=== PATIENT | male | born 1935 | race Caucasian/White ===

== ENCOUNTER → 2018-08-28 | Outpatient (REF) | payer MEDICARE, BC | END | disposition home or self-care (01) | LOC: LABSPEC 11:40 | PROVIDERS: ATTEND Internal Medicine | DX: I10 Essential (primary) hypertension (principal) ==

== ENCOUNTER 2020-06-17 13:37 | Emergency (ER) | payer MEDICARE, BC ==
[~2020-06-17] VITALS: Ht 180.3 cm; Wt 89.0 kg
[2020-06-17 14:31] LABS: GFR > 60 ML/MIN (>=60 (CALC)); GFR FOR AFR.AMER. > 60 ML/MIN (>=60 (CALC))
[2020-06-17 14:32] LABS: HEMATOCRIT 38.5 % (39.0-50.0); HEMOGLOBIN 12.7 g/dl (14.0-18.0); IMMATURE GRANULOCYTES 0.3 % (0.0-5.0); MEAN CORPUSCULAR HGB 30.7 pG CALC (26.0-32.0); NEUT# 5.55 thou/uL (1.82-7.42); RED BLOOD COUNT 4.14 mill/uL (4.70-6.10); RED CELL DISTRI WIDTH 14.1 % (11.5-15.5)
[2020-06-17 14:54] LABS: ALBUMIN 3.7 g/dL (3.2-5.0); ALKALINE PHOSPHATASE 42 u/l (38-126); BILIRUBIN, TOTAL 0.4 mg/dL (0.0-1.4); BUN 28 mg/dL (8-23); BUN/CREATININE RATIO 33 (12-20 (CALC)); CARBON DIOXIDE 21 mmol/l (22-30); CHLORIDE 99 mmol/l (95-108); CREATININE 0.8 mg/dL (0.7-1.3); GFR > 60 ML/MIN (>=60 (CALC)); GFR FOR AFR.AMER. > 60 ML/MIN (>=60 (CALC)); TOTAL PROTEIN 6.7 g/dL (6.3-8.2)
[2020-06-17 14:56] LABS: SODIUM 126 mmol/l (137-146)
[2020-06-17 14:57] LABS: ANION GAP 11 (6-22 (CALC)); POTASSIUM 5.2 mmol/l (3.5-5.1); SGOT/AST 46 u/l (19-48)
[2020-06-17 17:02] VITALS: BP 142/81
[2020-06-17] MEDS ORDERED: BYSTOLIC10 MG PO (19:26)
[2020-06-17] MEDS ORDERED: LISINOPRIL40 MG PO (19:26)
[2020-06-17] MEDS ORDERED: FINASTERIDE5 MG PO (19:28)
[2020-06-17] MEDS ORDERED: FLONASE AL50 MCG/ACT NAB (19:28)
[2020-06-17] MEDS ORDERED: SERTRALINE25 MG PO (19:28)
[2020-06-17] MEDS ORDERED: CHLORTHALID50 MG PO (19:29)
[2020-06-17] MEDS ORDERED: FERR SULFATE325 MG PO (19:29)
[2020-06-17] MEDS ORDERED: SPIRONOLACT25 MG PO (19:30)
[2020-06-17] MEDS ORDERED: TOPAMAX50 M1 PO (19:30)
[2020-06-17] MEDS ORDERED: LEVOCETIRIZINE D5 MG PO (19:30)
[2020-06-17] MEDS ORDERED: NORVASC10 M1 PO (19:31)
[2020-06-17] MEDS ORDERED: TAMSULOSIN0.4 MG PO (19:31)
[2020-06-17] MEDS ORDERED: TIMOLOL 0.5%5 ML OU (19:32)
[2020-06-17] MEDS ORDERED: VITAMIN C500 M6 PO (19:33)
[2020-06-17] MEDS ORDERED: ASPIRIN81 MG PO (19:33)
[2020-06-17] MEDS ORDERED: TRAVATAN0.0041 OU (19:34)
== END 2020-06-17 17:04 | disposition left against medical advice (07) ==
LOC: ED 13:37
PROVIDERS: Family Medicine
DX: G45.9 Transient cerebral ischemic attack, unspecified (principal); I65.23 Occlusion and stenosis of bilateral carotid arteries; I10 Essential (primary) hypertension; Z91.19 Patient's noncompliance with other medical treatment and regimen; Z20.828 Contact with and (suspected) exposure to other viral communicable diseases

== ENCOUNTER 2021-02-20 15:30 | Emergency (ER) | payer MEDICARE, BC ==
[~2021-02-20] VITALS: Ht 182.9 cm; Wt 90.0 kg
[~2021-02-20 15:30] MED LIST: ASPIRIN81 MG PO; BYSTOLIC10 MG PO; CHLORTHALID50 MG PO; FERR SULFATE325 MG PO; FINASTERIDE5 MG PO; FLONASE AL50 MCG/ACT NAB; LEVOCETIRIZINE D5 MG PO; LISINOPRIL40 MG PO; NORVASC10 M1 PO; SERTRALINE25 MG PO; SPIRONOLACT25 MG PO; TAMSULOSIN0.4 MG PO; TIMOLOL 0.5%5 ML OU; TOPAMAX50 M1 PO; TRAVATAN0.0041 OU; VITAMIN C500 M6 PO
[2021-02-20 16:20] VITALS: BP 139/84
== END 2021-02-20 16:20 | disposition home or self-care (01) ==
LOC: ED 15:30
DX: Z03.89 Encounter for observation for other suspected diseases and conditions ruled out (principal); I10 Essential (primary) hypertension; I65.29 Occlusion and stenosis of unspecified carotid artery

== ENCOUNTER 2022-04-05 09:41 | Inpatient (IN) | payer MEDICARE, BC ==
[~2022-04-05] VITALS: Ht 182.9 cm; Wt 113.0 kg
[~2022-04-05 09:41] MED LIST changes: -TRAVATAN0.0041 OU; +TRAVOPROST0.0041 OU
--- NOTE | 2022-04-05 10:10 | NUR ---
PT BROUGHT IN VIA EMS, STABLE
[2022-04-05 10:42] LABS: ALBUMIN 3.5 g/dL (3.2-5.0); ALKALINE PHOSPHATASE 50 u/l (38-126); ANION GAP 15 (6-22 (CALC)); BILIRUBIN, TOTAL 0.4 mg/dL (0.0-1.4); BUN 16 mg/dL (8-23); BUN/CREATININE RATIO 13 (12-20 (CALC)); CARBON DIOXIDE 21 mmol/l (22-30); CHLORIDE 108 mmol/l (95-108); CREATININE 1.2 mg/dL (0.7-1.3); GFR FOR AFR.AMER. > 60 ML/MIN (>=60 (CALC)); GFR OTHER RACES 58 ML/MIN (>=60 (CALC)); POTASSIUM 4.1 mmol/l (3.5-5.1); SGOT/AST 28 u/l (19-48); SODIUM 139 mmol/l (137-146)
[2022-04-05 10:45] LABS: HEMATOCRIT 33.7 % (39.0-50.0); HEMOGLOBIN 10.4 g/dl (14.0-18.0); IMMATURE GRANULOCYTES 0.1 % (0.0-5.0); MEAN CELL VOLUME 102.1 fL CALC (80.0-100.0); MEAN CORPUSCULAR HGB 31.5 pG CALC (26.0-32.0); MEAN CORPUSCULAR HGB CONC 30.9 g/dL CAL (32.0-36.0); NEUT# 4.23 thou/uL (1.82-7.42); RED BLOOD COUNT 3.3 mill/uL (4.70-6.10); RED CELL DISTRI WIDTH 14.2 % (11.5-15.5)
--- NOTE | 2022-04-05 11:10 | NUR ---
Reassessment of patient completed. No distress noted.
--- NOTE | 2022-04-05 12:10 | NUR ---
Reassessment of patient completed. Assisted with urinal. No distress noted.
[2022-04-05 12:24] LABS: URINE BILIRUBIN - DIPSTICK NEGATIVE (NEGATIVE); URINE BLOOD DIPSTICK NEGATIVE (NEGATIVE); URINE COLOR YELLOW; URINE GLUCOSE - DIPSTICK NEGATIVE (NEGATIVE); URINE KETONE NEGATIVE (NEGATIVE); URINE LEUK ESTERASE NEGATIVE (NEGATIVE); URINE PROTEIN - DIPSTICK NEGATIVE (NEG-TRACE); URINE SPECIFIC GRAVITY 1.015; URINE UROBILINOGEN - DIPSTICK 0.2 E.U./dL (0.2)
[2022-04-05 12:26] LABS: URINE NITRITE - DIPSTICK NEGATIVE (Negative)
--- NOTE | 2022-04-05 13:10 | NUR ---
Reassessment of patient completed. Spouse at bedside. No distress noted.
--- NOTE | 2022-04-05 14:10 | NUR ---
Reassessment of patient completed.Assitance given with urinal. No other needs voiced. Spouse at bedside
[2022-04-05] MEDS ORDERED: REMERON15 MG PO (15:23)
[2022-04-05] MEDS ORDERED: WELLBUTRIN XL300 MG PO (15:23)
[2022-04-05] MEDS ORDERED: GUANFACINE ER2 MG PO (15:24)
[2022-04-05] MEDS ORDERED: WELLBUTRIN XL150 MG PO (15:24)
[2022-04-05] MEDS ORDERED: SENNA-TABS8.6 MG PO (15:24)
[2022-04-05] MEDS ORDERED: [UNRECOGNIZED DRUG - OTHER] PO (15:25)
--- NOTE | 2022-04-05 16:32 | NUR ---
SETTLED PATIENT IN BED, WAS AT BEDSIDE SHE IS LEAVING BUT IS COMING BACK TO BE WITH HIM, HANDING OFF REPORT TO MEDICAL SERVICES COORDINATOR NURSE, CARMELITA.
--- NOTE | 2022-04-05 16:40 | NUR ---
RECIEVED REPORT ON PT. PT IN ROOM WITH , SLEEPING. EASILY AROUSIBLE AND PLEASANT. ALERT AND ORIENTATED X1. SPEECH CLEAR, BREATHING EVEN AND NONLABORED WHILE ON ROOM AIR. EMS SITE INTACT SPEEARS HEALTHY, FLUSHED. PT DENIES PAIN. TELE IN PLACE. SIDE RAILS X2. CALL LIGHT IN REACH, ALL SAFETY PRECAUTIONS IN PLACE AT THIS TIME.
[2022-04-05 16:44] VITALS: BP 184/81
[2022-04-05 19:22] VITALS: BP 182/79
--- NOTE | 2022-04-05 21:00 | NUR ---
PT IN ROOM AWAKE, CONFUSED ALERT X1. PT SEEING SNAKES, BIRDS AND PEOPLE IN ROOM. PT REORIENTATED. PT REPOSITIONED IN BED. OFFERED URINAL AND A SNACK. PT DENIES ANY NEEDS. BREATHING REMAINS THE SAME. CALL LIGHT IN REACH, ALL SAFETY PRECAUTIONS IN PLACE AT THIS TIME.
--- NOTE | 2022-04-05 22:00 | NUR ---
PT YELLING FOR . CALLING FOR HELP. TRYING TO GET OUT OF BED.PT REORIENTATED. REASSURED IS OKAY AND WILL RETURN TOMORROW AFTER HER PROCEDURE. PT SEEMED CONTENT WITH ANSWER GIVEN. OFFERED URINAL PT TRIED TO USE IT BUT WAS UNABLE TO PEE. ALL SAFETY PRECAUTIONS IN PLACE AT THIS TIME.
--- NOTE | 2022-04-05 23:45 | NUR ---
PT YELLING AGAIN, SAYING "HELP ME!". AYA NURSE WENT TO ROOM TO ASSIST PT. PT STATED NEEDING TO LEAVE BECAUSE OF NEEDING TO GO TO EMERGENCY ROOM. ATTEMPTED TO REORIENTATE. PT REFUSES TO ALLOW STAFF TO OBTAIN VITALS. HITTING SIDE RAILS WITH URINAL. PT REMOVED TELLE CORDS.
--- NOTE | 2022-04-06 01:06 | NUR ---
CALLED COLLIERY CLERK PHYSICAN DUE TO PT AGITATION. PT REMAINS CONFUSED AND AGITATED WELL SHOWING ANXIETY. WORRIED ABOUT WIFES PROCEDURE, THE PERSON HE SEES IN THE SHADOWS, SNAKES IN ROOM WELL STATES NEEDS TO LEAVE. PT UNABLE TO BE REORIENTATED.
--- NOTE | 2022-04-06 02:05 | NUR ---
ORDER FOR ZYPREXA RECIEVED, MEDICATION ADMINISTERED PER ORDERS.
--- NOTE | 2022-04-06 05:28 | NUR ---
PT RESTLESS IN BED. LESS YELLING, NO LONGER HITTING THE BED WITH URINAL BUT COMPLETELY AWAKE AND CONSTANTLY REPOSITIONING SELF SIDEWAYS IN CENTER OF BED. UNABLE TO REORIENTATE PT. ALL SAFETY PRECAUTIONS IN PLACE. BED ALARM IN PLACE
[2022-04-06 06:54] VITALS: BP 193/84
--- NOTE | 2022-04-06 07:00 | NUR ---
RECEIVE REPORT FROM DALJIT SHANNON.
--- NOTE | 2022-04-06 08:00 | NUR ---
Patient is alert and oriented x3 but have periods of frequent forgetfulness.
--- NOTE | 2022-04-06 08:00 | NUR ---
PATIENT ALERT AND ORIENTED X3. GOOD RESPIRATORY RATE AT THIS TIME. VERIFY BP LEVEL. PT IS EDUCATED ABOUD MEDICATIONS AND NURSING PLAN FOR TODAY. PT REFER UNDERSTAND. SAFETY AND FALL PRECAUTIONS IN PLACE. CALL LIGHT WITHIN REACH.
[2022-04-06] MEDS ORDERED: DORZOLAMIDE HCL2 % OU (10:01)
[2022-04-06 10:03] VITALS: BP 171/93
[2022-04-06 10:05] VITALS: BP 171/93
[2022-04-06 10:47] LABS: IMMATURE GRANULOCYTES 0.2 % (0.0-5.0); MEAN CELL VOLUME 100.2 fL CALC (80.0-100.0); MEAN CORPUSCULAR HGB 30.8 pG CALC (26.0-32.0); MEAN CORPUSCULAR HGB CONC 30.8 g/dL CAL (32.0-36.0); NEUT# 5.32 thou/uL (1.82-7.42); RED BLOOD COUNT 4.02 mill/uL (4.70-6.10); RED CELL DISTRI WIDTH 13.8 % (11.5-15.5)
[2022-04-06 11:00] VITALS: BP 180/108
[2022-04-06 11:01] LABS: ALBUMIN 3.7 g/dL (3.2-5.0); ALKALINE PHOSPHATASE 63 u/l (38-126); ANION GAP 20 (6-22 (CALC)); BILIRUBIN, TOTAL 0.4 mg/dL (0.0-1.4); BUN 18 mg/dL (8-23); BUN/CREATININE RATIO 15 (12-20 (CALC)); C-REACTIVE PROTEIN 1.7 mg/dL (0-0.9); CARBON DIOXIDE 19 mmol/l (22-30); CHLORIDE 106 mmol/l (95-108); CREATININE 1.2 mg/dL (0.7-1.3); GFR FOR AFR.AMER. > 60 ML/MIN (>=60 (CALC)); GFR OTHER RACES 58 ML/MIN (>=60 (CALC)); POTASSIUM 4.2 mmol/l (3.5-5.1); SGOT/AST 38 u/l (19-48); SODIUM 140 mmol/l (137-146); TOTAL PROTEIN 6.2 g/dL (6.3-8.2)
[2022-04-06 11:05] LABS: HEMATOCRIT 40.3 % (39.0-50.0); HEMOGLOBIN 12.4 g/dl (14.0-18.0)
--- NOTE | 2022-04-06 11:54 | NUR ---
PATIENT RESTING PLEASANT AT BED. ACCOMPANIED FOR AND DAUGHTER.
--- NOTE | 2022-04-06 12:00 | NUR ---
PATIENT RESTING PLEASANT AT BED. ACCOMPANIED FOR AND DAUGHTER.
--- NOTE | 2022-04-06 16:00 | NUR ---
HE PATIENT'S IS GIVEN A YELLOW RING, A YELLOW WATCH AND A BROWN BRACELET. BEFORE MRI.
--- NOTE | 2022-04-06 16:00 | NUR ---
PATIENT WITH INTERMITTENT PERIODS OF CLARITY AND CONFUSION. IT IS INFORMED TO DR. BURKS. WHO ORDERS SITTER AND MRI. FAMILY AT BEDSIDE. MEDICATION IS ADMINISTERED FOR JULIETA BLOOD PRESSURE. IT IS INFORMED TO DR. BURKS.
[2022-04-06 16:07] LABS: ALBUMIN 3.7 g/dL (3.2-5.0); BILIRUBIN, TOTAL 0.4 mg/dL (0.0-1.4); TOTAL PROTEIN 6.3 g/dL (6.3-8.2)
--- NOTE | 2022-04-06 19:00 | NUR ---
RECIEVED REPORT ON PT. PT IN SLEEPING, BREATHING REMAINS EVEN AND NONLABORED. NO SIGNS OF DISTRESS. TELE IN PLACE. IV SITE PATENT. SITTER PRESENT AT BED SIDE. ALL SAFETY PRECAUTIONS IN PLACE.
[2022-04-06 19:57] VITALS: BP 158/76
[2022-04-06 20:45] VITALS: BP 132/64
[2022-04-07] VITALS (9 sets, daily range): BP systolic 139–194; BP diastolic 58–95
--- NOTE | 2022-04-07 | NUR ---
PT SLEEPING IN BED, EASIY ARROUSIBLE. ALERT TO SELF, CONFUSED ON TIME FRAME, AWARE IN HOSPITAL. IV FLUIDS STOPPED BECAUSE IT BEGAN TO AGGITATE PT. OFFERED URINAL ADN SNACK. PT GIVEN A MOUTH SWAB TO HELP MOISTEN MOUTH. DENIES ANY FURTHER NEEDS AT THIS TIME. CALL LIGHT IN REACH, SITTER AT BEDSIDE ADN ALL SAFETY PRECAUTIONS IN PLACE AT THIS TIME.
--- NOTE | 2022-04-07 02:55 | NUR ---
PT AGITATED, TRYING TO GET OUT OF BED. CHANNEL SUPERVISOR AND NURSE UNABLE TO REORIENTATE PT. OFFERED PT URINAL, PT BEGAN TO BE COMBATIVE WITH CHANNEL SUPERVISOR. PT OFFERED DRINK AND SNACK PT REFUSED. PT GIVEN A WARM BLANKET TO TRY TO COMFORT PT. SITTER AT BEDSIDE, ALL SAFETY PRECAUTIONS IN PLACE AT THIS TIME
--- NOTE | 2022-04-07 04:37 | NUR ---
STROKE ALERT CALLED DUE TO LEFT EYE PUPIL BEING LARGER THAN RIGHT. 4CM PUPIL ON LEFT EYE 2CM RIGHT EYE POUPIL. SPEACH SLURRED AND PT UNABLE TO SAY OWN NAME. PT SHIVERING, TEMP 99.0. TAKING PT TO CT WITH DAMPER WORKER
--- NOTE | 2022-04-07 04:40 | NUR ---
TELENEUROLOGY CONSULT WITH MARGARITA VAZQUEZ DO. REFERRENCE TELENEUROLOGY NOTE.
[2022-04-07 05:07] LABS: HEMATOCRIT 39.8 % (39.0-50.0); HEMOGLOBIN 12.6 g/dl (14.0-18.0); IMMATURE GRANULOCYTES 0.1 % (0.0-5.0); MEAN CORPUSCULAR HGB 31.3 pG CALC (26.0-32.0); MEAN CORPUSCULAR HGB CONC 31.7 g/dL CAL (32.0-36.0); NEUT# 5.61 thou/uL (1.82-7.42); RED BLOOD COUNT 4.02 mill/uL (4.70-6.10); RED CELL DISTRI WIDTH 13.8 % (11.5-15.5)
--- NOTE | 2022-04-07 05:30 | NUR ---
DR. KIRKPATRICK INFORMED OF PT CHNAGE OF CONIDTION. VERBALIZED APPROVAL OF CTA THAT WAS RECOMMENDED BY MARGARITA RIVERA DO.
[2022-04-07 05:38] LABS: CREATININE 1.4 mg/dL (0.7-1.3); MAGNESIUM 2.4 mg/dL (1.6-2.3); POTASSIUM 4.1 mmol/l (3.5-5.1)
--- NOTE | 2022-04-07 05:41 | NUR ---
BROUGHT PT BACK TO MED SURG AFTER CTA,AWAITING RESESULTS. CT SHOWED ISCHEMIC DISEASE. PT BRIEF CHANGED, BED LINEN CHANGED. SITTER PRESENT WITH PATIENT. ALL SAFETY PRECAUTIONS IN PLACE AT THIS TIME.
--- NOTE | 2022-04-07 07:00 | NUR ---
RECEIVE REPORT FROM DALJIT SHANNON.
--- NOTE | 2022-04-07 08:00 | NUR ---
PATIENT RESTING IN BED STABLE AT THIS TIME. PATIENT ALEET AND ORIENTED X1. SITTER AT BEDSIDE. GOOD RESPIRATORY RATE O2 100% RA. PATIENT IS EDUCATED ABOUD MEDICATIONS AND NURSING PLAN FOR TODAY. PT REFER UNDERSTASND.
--- NOTE | 2022-04-07 08:04 | NUR ---
PRELIMINARY BLOOD CX SHOWS GRAM POSITIVE COCCI IN 2/[address] BURKS. RECOMMENDED STARTING VANCOMYCIN. DR BURKS AGREED. ORDER ENTERED. WILL F/U WITH FINAL RESULTS
--- NOTE | 2022-04-07 09:32 | NUR ---
S: PIPPA JURADO is a 86 M who presents with altered mental status. He has a history of HTN, carotid stenosis, and CAD. Pt also presents with leukocytosis. All medications in patient's chart were reviewed. O: VS: BP 192/91 mmHg, P 80 bpm, RR 19 bpm, T 98.8 F W 113.001 kg, HT 182.88 cm, Scr= 1.4 mg/dL, CrCl= 51 mL/min A: Blood culture preliminary shows gram positive cocci, final result still pending. P: Vancomycin ordered for pharmacy to dose. Patient is not on other antibiotics. Start Vancomycin 750mg IV Q12H. Vancomycin trough is drawn before the 4th dose on 04/08/22 @ 2030. Vancomycin goal trough is between 15-20 mcg/mL. Pharmacy will follow and or advise on antibiotics use as needed.
[2022-04-07 09:58] LABS: TSH, 3RD GENERATION 2.12 uIU/mL (0.47 - 4.68)
--- NOTE | 2022-04-07 11:00 | NUR ---
LOREN IN PLACE FOR MATEUS REYES
[2022-04-07 11:32] LABS: URINE BILIRUBIN - DIPSTICK NEGATIVE (NEGATIVE); URINE BLOOD DIPSTICK NEGATIVE (NEGATIVE); URINE CLARITY CLEAR; URINE COLOR YELLOW; URINE GLUCOSE - DIPSTICK NEGATIVE (NEGATIVE); URINE KETONE TRACE mg/dL (NEGATIVE); URINE LEUK ESTERASE NEGATIVE (Negative); URINE NITRITE - DIPSTICK NEGATIVE (Negative); URINE PROTEIN - DIPSTICK NEGATIVE (NEG-TRACE); URINE SPECIFIC GRAVITY 1.015; URINE UROBILINOGEN - DIPSTICK 0.2 E.U./dL (0.2)
--- NOTE | 2022-04-07 11:58 | NUR ---
PATIENT RESTING IN THE CHAIR. SITTER AT BEDSIDE. PIMENTEL DONE FOR URINE RETENTION. STABLE AT THIS TIME.
--- NOTE | 2022-04-07 16:27 | NUR ---
PATIENT RESTING IN BED. SITTER AT BEDSIDE. PT TRIED TO REMOVE THE PIMENTEL URINE OBSERVED BLOODY FOR THIS REASON.
[2022-04-08 05:23] LABS: HEMATOCRIT 37.9 % (39.0-50.0); IMMATURE GRANULOCYTES 0.2 % (0.0-5.0); MEAN CELL VOLUME 99.2 fL CALC (80.0-100.0); MEAN CORPUSCULAR HGB 31.4 pG CALC (26.0-32.0); MEAN CORPUSCULAR HGB CONC 31.7 g/dL CAL (32.0-36.0); NEUT# 6.05 thou/uL (1.82-7.42); RED BLOOD COUNT 3.82 mill/uL (4.70-6.10)
[2022-04-08 05:50] LABS: ANION GAP 16 (6-22 (CALC)); BUN 21 mg/dL (8-23); BUN/CREATININE RATIO 18 (12-20 (CALC)); CARBON DIOXIDE 20 mmol/l (22-30); CHLORIDE 106 mmol/l (95-108); CREATININE 1.2 mg/dL (0.7-1.3); GFR FOR AFR.AMER. > 60 ML/MIN (>=60 (CALC)); GFR OTHER RACES 58 ML/MIN (>=60 (CALC)); MAGNESIUM 2.2 mg/dL (1.6-2.3); SODIUM 138 mmol/l (137-146)
[2022-04-08 06:02] VITALS: BP 105/84
--- NOTE | 2022-04-08 08:00 | NUR ---
Patient is laying in bed with sitter at bedside. Patient midly anxious and needs frequent reorientation. Vitals WNL, patient has no complaints of pain at this time and is in no visible distress. This nurse made aware patient is to get Lumbar Puncture this afternoon. Assessments WNL.
[2022-04-08 08:31] VITALS: BP 169/77
--- NOTE | 2022-04-08 12:00 | NUR ---
This nurse accompanied patient to Trauma Room # 1 by the ER for Lumbar Puncture. Patient was given Valium 5 mg IV per verbal order. Patient tolerated procedure with reorienatation and emotional support.
[2022-04-08 15:13] VITALS: BP 129/61
--- NOTE | 2022-04-08 19:20 | NUR ---
REPORT RECEIVED FROM Davina STEPHENSON RN.
--- NOTE | 2022-04-08 21:00 | NUR ---
PATIENT RESTING QUIETLY. SITTER AT BEDSIDE. FOLWY DRAINING DARK TIMUR URINE TO GRAVITY. BED ALARM INITIATED OFR SAFETY, CALL LIGHT AND BEDSIDE TABLE WTIHIN REACH.
--- NOTE | 2022-04-08 23:30 | NUR ---
MEDICATIONS NOT GIVEN, PATIENT ABLE TO AWAKE TO SPEECH BUT NOT ORIENTED TO TIME AND PLACE AND REFUSING TO FOLLOW COMMANDS. NOTIFIED DRY CELL TESTER.
--- NOTE | 2022-04-09 04:00 | NUR ---
PATIENT RESTING COMOFRTABLY, SITTER AT BEDSIDE. BED ALARM REMAINS ON FOR SAFETY. CALL LIGHT AND BEDSDIE TABLE WITHIN REACH.
[2022-04-09 05:44] LABS: HEMATOCRIT 36.1 % (39.0-50.0); HEMOGLOBIN 11.6 g/dl (14.0-18.0); IMMATURE GRANULOCYTES 0.1 % (0.0-5.0); MEAN CELL VOLUME 99.4 fL CALC (80.0-100.0); MEAN CORPUSCULAR HGB CONC 32.1 g/dL CAL (32.0-36.0); NEUT# 5.34 thou/uL (1.82-7.42); RED BLOOD COUNT 3.63 mill/uL (4.70-6.10); RED CELL DISTRI WIDTH 13.9 % (11.5-15.5)
[2022-04-09 06:05] LABS: ALBUMIN 3.1 g/dL (3.2-5.0); ALKALINE PHOSPHATASE 45 u/l (38-126); ANION GAP 15 (6-22 (CALC)); BILIRUBIN, TOTAL 0.5 mg/dL (0.0-1.4); BUN 19 mg/dL (8-23); BUN/CREATININE RATIO 18 (12-20 (CALC)); CARBON DIOXIDE 19 mmol/l (22-30); CHLORIDE 110 mmol/l (95-108); CREATININE 1.1 mg/dL (0.7-1.3); GFR FOR AFR.AMER. > 60 ML/MIN (>=60 (CALC)); GFR OTHER RACES > 60 ML/MIN (>=60 (CALC)); POTASSIUM 4.5 mmol/l (3.5-5.1); SGOT/AST 39 u/l (19-48); SODIUM 139 mmol/l (137-146); TOTAL PROTEIN 5.6 g/dL (6.3-8.2)
--- NOTE | 2022-04-09 08:00 | NUR ---
PT RESTING IN BED WITH SITTER IN ROOM. PT VERY CONFUSED.
--- NOTE | 2022-04-09 08:22 | NUR ---
S: PIPPA JURADO is a 86 M who presents with bacteremia. He has a history of HTN, carotid stenosis, and CAD. All medications in patient's chart were reviewed. O: VS: BP 129/61 mmHg, P 70 bpm, RR 20 bpm, T 100.3 F W 113.001 kg, HT 182.88 cm, Scr= 1.1 mg/dL, CrCl= 64.9 mL/min Trough level on 04/08/22 @2042 = 12 ug/mL A: Blood culture shows Staphylococcus Pettenkoferi growth susceptible to vancomycin in 2/4 vials, possible contaminant. Repeat culture is pending. Urine culture shows no growth. CSF culture is pending. P: Patient is not on other antibiotics. Vancomycin ordered for pharmacy to dose. Continue Vancomycin 750mg IV Q12H. Vancomycin trough is drawn before the 4th dose on 04/10/22 @0830. Vancomycin goal trough is between 15-20 mcg/mL. Pharmacy will follow and or advise on antibiotics use as needed.
[2022-04-09 09:41] VITALS: BP 195/98
--- NOTE | 2022-04-09 10:09 | NUR ---
PT TAKEN TO MRI
--- NOTE | 2022-04-09 10:51 | NUR ---
PT BACK FROM MRI.
--- NOTE | 2022-04-09 12:23 | NUR ---
PT SLEEPING IN BED. AND SITTER IN ROOM.
[2022-04-09 14:48] VITALS: BP 160/77
[2022-04-09 15:44] VITALS: BP 125/61
--- NOTE | 2022-04-09 16:01 | NUR ---
PT RESTING IN BED COMFORTABLY. VSS. SITTER AND IN ROOM.
[2022-04-09 19:00] VITALS: BP 143/86
[2022-04-09 19:12] VITALS: BP 143/86
--- NOTE | 2022-04-09 20:15 | NUR ---
PT SLEEPY, EASILY AROUSABLE.HR-RRR, NO PAIN, CHEST PAIN NOTED. LS CLEAR, DIMINISHED IN BASES, NO SOB, DIFFICULTY BREATHING NOTED. ABD SOFT, NONTENDER, BT PRESENT, NO NAUSEA NOTED. PT ABLE TO MOVE ALL EXTREMETIES, PT ABLE T[place]KE NEEDS KNOWN. SKIN INTACT. HEELS FLOATED.
[2022-04-09 23:58] VITALS: BP 155/60
[2022-04-10] VITALS (54 sets, daily range): BP systolic 93–207; BP diastolic 60–117
--- NOTE | 2022-04-10 01:10 | NUR ---
SPOKE WITH DENY AT THE [facility]. SHE STATED THAT THE HOSPITAL IS CURRENTLY AT CAPACITY AND COULD NOT ACCEPT A NON-EMERGENT TRANSFER TONIGHT. THE PHYSICIAN GROUP REQUESTED THAT THE PRIMARY CARE PROVIDER CALL IN THE MORNING TO CONDUCT A [id number] REPORT IN THE MORNING AND REASSESS THE FACILITY'S STATUS AT THAT TIME.
--- NOTE | 2022-04-10 02:07 | NUR ---
PT AGITATED, FOOD AND WATER OFFERED, PT REFUSED. PT ORIENTED TO HOSPITALSETTING
--- NOTE | 2022-04-10 05:32 | NUR ---
PT BP 185/76, PRN LABETOLOL GIVEN. PT TEMP 101. URINE OUTPUT 300 ML TIMUR URINE IN [address] BURKS NOTIFIED. WILL CONTINUE TO MONITOR
--- NOTE | 2022-04-10 06:06 | NUR ---
PTO2 SATS 85-89 ON 2L NC, PT INSTRUCTED TO TAKE DEEP BREAHTS, UNABLE TO FOLLOW COMMANDS, BREATHING THROUGH MOUTH. OXYMASK NOT AVAILABLE ON FLOOR, INCREASED O2 TO 5L. PT O2 SATS 90. DR GONZALEZ NOTIFIED.
--- NOTE | 2022-04-10 06:25 | NUR ---
REPORT GIVEN TO CREW PERSON. PT TRANSFERRED WITH ALL BELONGINGS. PT RESTING IN NO SIGN OF DISCOMFORT.
--- NOTE | 2022-04-10 06:34 | NUR ---
PT. TRANSFERRED FROM ROOM 270. REPORT RECEIVED FROM RODRIGUEZ FALK. PT. CONFUSED. B/P IS 189/84. AWAITING ORDERS TO BE VERIFIED. PT ON 5 L NC. PT. NOT IN ANY DISTRESS. SITTER AT BEDSIDE. WILL CONTINUE TO MONITOR
--- NOTE | 2022-04-10 07:46 | NUR ---
pt resting in bed with eyes closed; no apparent distress noted; easily aroused; pt offers no complaints; assessment completed at this time; pt alert to person, place and year; answers questions approp however speech is very garbled; denies pain; no n/v noted; resp even and unlabored; lungs clear/ diminished bases; skin color wnl; o2 per nc at 6L; pt noted to mouth breath; hr reg; wk pedal pulses; no edema noted; sr on monitor; abd soft with bs present; no bm noted per securities underwriter; aragon to gravity; #20 patent to rfa with ivf infusing without complication; no redness or edema noted at site; pt able to follow all commands, right leg drift noted; visual impairment noted as well; sitter present at bedside for pt safety; repositioned; call light within reach; will continue to monitor
--- NOTE | 2022-04-10 08:08 | NUR ---
pt resting in bed with eyes closed; no apparent distress noted; sr on monitor; sitter present at bedside; call light within reach; will continue to monitor
[2022-04-10 08:11] LABS: HEMATOCRIT 36.7 % (39.0-50.0); HEMOGLOBIN 11.4 g/dl (14.0-18.0); IMMATURE GRANULOCYTES 0.2 % (0.0-5.0); MEAN CELL VOLUME 100.8 fL CALC (80.0-100.0); MEAN CORPUSCULAR HGB 31.3 pG CALC (26.0-32.0); MEAN CORPUSCULAR HGB CONC 31.1 g/dL CAL (32.0-36.0); NEUT# 6.17 thou/uL (1.82-7.42); RED BLOOD COUNT 3.64 mill/uL (4.70-6.10)
[2022-04-10 08:15] LABS: ANION GAP 14 (6-22 (CALC)); BUN 21 mg/dL (8-23); BUN/CREATININE RATIO 17 (12-20 (CALC)); CARBON DIOXIDE 18 mmol/l (22-30); CHLORIDE 111 mmol/l (95-108); CREATININE 1.2 mg/dL (0.7-1.3); GFR FOR AFR.AMER. > 60 ML/MIN (>=60 (CALC)); GFR OTHER RACES 58 ML/MIN (>=60 (CALC)); MAGNESIUM 2.4 mg/dL (1.6-2.3); POTASSIUM 4.2 mmol/l (3.5-5.1); SODIUM 140 mmol/l (137-146)
--- NOTE | 2022-04-10 08:31 | NUR ---
Dr Ortega present at bedside to assess pt and discuss plan of care
--- NOTE | 2022-04-10 08:54 | NUR ---
Dr Ortega present at bedside to speak with spouse
--- NOTE | 2022-04-10 09:30 | NUR ---
pt transported to CT scan via bed accompanied per this typewriter ribbon winder and Biju Carlisle CNA; tolerated well; o2 per nc during transport;
--- NOTE | 2022-04-10 09:43 | NUR ---
pt returned to room via bed in stable condition; monitoring attachments connected; will continue to monitor
--- NOTE | 2022-04-10 10:15 | NUR ---
resting in bed with eyes closed; family x2 at bedside; offers no complaints; iv intact and patent; aragon to gravity; will continue to monitor
--- NOTE | 2022-04-10 11:19 | NUR ---
repositioned to left side
--- NOTE | 2022-04-10 12:00 | NUR ---
awake in bed; repositioned; pt appears more anxious; easily reoriented; cooperative at this time; spouse and daughter at bedside; updated awaiting CT report and bed availability at [facility]; will continue to monitor
--- NOTE | 2022-04-10 12:10 | NUR ---
Dr Graham present bedside to re-assess pt and speak with family
--- NOTE | 2022-04-10 14:22 | NUR ---
pt awake; appears slightly agitated; continued stimulation by family; pt respositioned to right side; feet offloaded with pillow; blankets straightened for comfort; family to depart and allow pt to rest for a while; this mortgage underwriter assured spouse she will be notified with any changes, transfer update; apprec of care; will continue to monitor
--- NOTE | 2022-04-10 16:11 | NUR ---
resting in bed with eyes closed; no apparent distress noted; iv intact and patent; sr on monitor; aragon to gravity; will continue to monitor
--- NOTE | 2022-04-10 16:25 | NUR ---
repositioned to left side; feet floated; pt more agitated; attempts to push staff away when trying to adjust o2; pt refusing oral care with toothette; will continue to monitor
--- NOTE | 2022-04-10 18:25 | NUR ---
pt awake restless in bed; no distress noted; iv intact and patent; sr on monitor; aragon to gravity; repositioned; call light within reach
--- NOTE | 2022-04-10 19:15 | NUR ---
awake. restless. pulling @ gown & linen. oriented to name only. o2 cont per nc. #22 rt hand ns infusing @ 80cchr. remains npo. aragon cath in place urine clear yellow. turned & repositioned. fall precautions & bed alarm conts.
--- NOTE | 2022-04-10 20:00 | NUR ---
[id number] supervisor coremaker notified this sign writer letterer or [facility] rec'd. notified of bed availability. consent to transfer obtained. darien @ [facility] notified of need to transfer. darien said they would arrive between [id number].
--- NOTE | 2022-04-10 23:35 | NUR ---
04-10-22 @ 2335-04-11-22 [facility] left. report called to alek medina @ [phone]
== END 2022-04-10 23:35 | disposition short-term general hospital (02) | DRG 72 ==
LOC: ED 09:41 → ED-I 14:40 → ED 14:57 → MS2 14:58 → ICU 04-10 06:06
PROVIDERS: Family Medicine; Nurse Practitioner; ADMIT Internal Medicine; ATTEND Internal Medicine
PROC: 3E02340 Introduction of Influenza Vaccine into Muscle, Percutaneous Approach (ICD-10-PCS; principal; 2022-04-06)
PROC: 0T9B70Z Drainage of Bladder with Drainage Device, Via Natural or Artificial Opening (ICD-10-PCS; 2022-04-07)
PROC: 009U3ZX Drainage of Spinal Canal, Percutaneous Approach, Diagnostic (ICD-10-PCS; 2022-04-08)
PROC: B01BZZZ Fluoroscopy of Spinal Cord (ICD-10-PCS; 2022-04-08)
DX: G93.41 Metabolic encephalopathy (principal); D72.820 Lymphocytosis (symptomatic); R06.03 Acute respiratory distress; R09.02 Hypoxemia; I10 Essential (primary) hypertension; I25.10 Atherosclerotic heart disease of native coronary artery without angina pectoris; I67.2 Cerebral atherosclerosis; F41.9 Anxiety disorder, unspecified; F32.A Depression, unspecified; N40.1 Benign prostatic hyperplasia with lower urinary tract symptoms; R33.8 Other retention of urine; H02.403 Unspecified ptosis of bilateral eyelids; T18.9XXA Foreign body of alimentary tract, part unspecified, initial encounter; X58.XXXA Exposure to other specified factors, initial encounter; Z23 Encounter for immunization; Z95.828 Presence of other vascular implants and grafts; Z91.81 History of falling; Z20.822 Contact with and (suspected) exposure to COVID-19
CPT/HCPCS: A9579; G0378; J1650; J3370; Q9967; S0166